=== PATIENT | male | born 1955 | race Caucasian/White ===

== ENCOUNTER 2019-10-03 08:15 | Outpatient (CLI) | payer MEDICARE, SELFPAY ==
--- NOTE | 2019-10-08 02:09 | SLEEP_ITS ---
Split Night Sleep Study DATE OF STUDY: 10/03/2019 REASON FOR THIS STUDY: Hypersomnia, erythrocytosis with concern for sleep apnea. HISTORY: The patient is a 64-year-old male, 66 inches tall, weighing 206 pounds with a body mass index of 33.2. He was being seen by Dr. Calvert for erythrocytosis with elevated blood counts in October 2018. He began having phlebotomy weekly than monthly. His lab tests for polycythemia vera were negative. Dr. Calvert referred him for evaluation of sleep issues due to the elevated blood counts. The patient's normal bedtime is 11 p.m., falling asleep quickly, waking 1 or 2 times at night, depending on how much fluid he has had to drink. He does have nocturia some nights. He does not drink frequently. He denies nightmares. His legs do not bother him at night. Sleep is non-refreshing. He wakes at 7:30 a.m. before the alarm goes off. He denies taking naps. He rarely awakens at night with heartburn, belching or coughing. He occasionally has trouble sleeping with a cold. He does not gasp for breath at night, sweat excessively at night or notices heart pounding irregularly at night. He rarely falls asleep during the day, never involuntarily, and never while driving. He does not have loss of muscle tone with strong emotion. He does not have daytime difficulties due to excessive sleepiness. He does not feel paralyzed on waking or falling asleep. He rarely has vivid dreamlike scenes upon awakening or falling asleep. He is never afraid to go to sleep and does not have nightmares. He rarely remembers his dreams, rarely has racing thoughts, rarely feels sad or depressed, but occasionally has anxiety. He rarely has muscular tension. He denies having parts of his body jerk, denies kicking at night, denies crawly achy feelings in the legs and leg pain at night. He does not have morning jaw pain. Does not grind his teeth at night. He is not bothered by pain during the day or at night. He rarely wakes up feeling stiff in the morning with sore achy muscles. He does not have pain in the spine or neck. A short nap may be refreshing, but he generally does not take naps. Most of the time he feels good in the morning. He does feel better in the evenings than the morning. MEDICAL COMORBIDITIES: Hypertension, heart disease, diabetes, acid reflux, erythrocytosis with phlebotomy, swallowing problems, coronary artery disease with a history of coronary artery bypass grafting, open-angle glaucoma, dyslipidemia. MEDICATIONS: 1. Aspirin 81 mg a day. 2. Clopidogrel 75 mg a day. 3. Atorvastatin 20 mg a day. 4. Metoprolol 25 mg twice a day. 5. Lisinopril half tablet daily. 6. Metformin 2000 mg twice a day and 1000 mg once a day. 7. Travoprost 1 drop each eye daily. HABITS: Never smoked tobacco. Caffeine: He has 1 Coke Zero daily. No alcohol. DESCRIPTION OF THE STUDY: On the [place] Sleepiness Scale, the score is 5. This was conducted as a split-night study using the [employer] multiple channel system including EOG, EEG, submental EMG, EKG, nasal and oral airflow using thermistors, nasal pressure sensors, chest and abdominal belts, body position data and pulse oximetry. The study was scored using CMS guidelines. During the baseline portion, recording time was 175.7 minutes. Sleep time was 113.5 minutes. Sleep efficiency was 64.6%. Sleep latency was prolonged 36.9 minutes. There was no REM. There were 10 awakenings and the patient spent 25.3 minutes awake after sleep onset. Sleep architecture showed 10.1% stage I sleep, 89.9% stage II sleep. No stage III sleep. No stage REM. The patient did not spend any time supine during the baseline. During this portion, the apnea-hypopnea index was 35.9, all obstructive events. He had 2 obstructive apneas, 66
== END 2019-10-03 08:16 | disposition home or self-care (01) ==
LOC: ANHCSM 08:20
PROVIDERS: PCP Family Medicine; Visit Provider Internal Medicine Critical Care Medicine
DX: G47.10 Hypersomnia, unspecified (principal); G47.33 Obstructive sleep apnea (adult) (pediatric); G47.61 Periodic limb movement disorder; Z68.33 Body mass index [BMI] 33.0-33.9, adult; I10 Essential (primary) hypertension; I25.10 Atherosclerotic heart disease of native coronary artery without angina pectoris; E11.9 Type 2 diabetes mellitus without complications; E78.5 Hyperlipidemia, unspecified
CPT/HCPCS: 95811